=== PATIENT | female | born 1940 | race Caucasian/White ===

== ENCOUNTER 2018-02-11 10:23 | Outpatient (CLI) | payer MEDICARE, OTHER ==
[2018-02-11 11:47] LABS: Hemoglobin 13.8 g/dL (12.0-16.0); Mean Corpuscular Hemoglobin 32.2 pg (27.0-31.0); Mean Corpuscular Volume 97.6 fL (78.0-98.0); Mean Platelet Volume 8.6 fL (7.4-10.4); Platelet Count 232 thou/uL (130-400); RBC Distribution Width 12.8 % (11.5-14.5); Red Blood Cell (RBC) Count 4.28 mill/uL (4.20-5.40); White Blood Cell (WBC) Count 8.8 thou/uL (4.8-10.8)
[2018-02-11 12:08] LABS: Anion Gap 13 mmol/L (10-20); BUN (Urea Nitrogen) 24 mg/dL (9.8-20.1); Calc. Creatinine Clearance 0 mL/min (70-130); Calcium 10.5 mg/dL (7.8-10.44); Carbon Dioxide 29 mmol/L (23-31); Chloride 99 mmol/L (98-107); Estimated GFR-MDRD 39; Glucose 101 mg/dL (83-110); Potassium 3.4 mmol/L (3.5-5.1); Sodium 138 mmol/L (136-145)
== END 2018-02-11 10:24 | disposition home or self-care (01) ==
LOC: LABBT 10:23
PROVIDERS: ATTEND Neurological Surgery
DX: Z01.818 Encounter for other preprocedural examination (principal); M48.061 Spinal stenosis, lumbar region without neurogenic claudication
CPT/HCPCS: 80048; 85027; 93005; 93010

== ENCOUNTER 2018-02-11 10:30 | Inpatient (IN) | payer MEDICARE, OTHER ==
[2018-02-21] MEDS ORDERED: Sodium Chloride 0.9% 0 ML ONE (06:48)
[2018-02-21] MEDS ORDERED: CEFAZOLIN/Water 2 GM/20 ML SYRINGE ONE (06:58)
[2018-02-21] MEDS ORDERED: Phenylephrine HCL 10 MG/ML VIAL ONE (07:06)
[2018-02-21] MEDS ORDERED: Fentanyl 250 MCG/5 ML VIAL ONE (07:06)
[2018-02-21] MEDS ORDERED: Promethazine HCl 25 MG/ML VIAL ONE (07:07)
[2018-02-21] MEDS ORDERED: Promethazine HCl 25 MG/ML VIAL SLOW IVP PRN (08:48)
[2018-02-21] MEDS ORDERED: Ondansetron HCl/PF 4 MG/2 ML Vial IVP PRN (08:48)
[2018-02-21] MEDS ORDERED: Morphine Sulfate 2 MG/ML SYRINGE SLOW IVP PRN (08:48)
[2018-02-21] MEDS ORDERED: Meperidine HCl/PF 25 MG/ML VIAL SLOW IVP PRN (08:48)
[2018-02-21] MEDS ORDERED: Sodium Chloride 0.9% 10 ML ONE (09:35)
[2018-02-21] MEDS ORDERED: traMADol HCl 50 MG TAB PO PRN ×2 (10:19)
[2018-02-21] MEDS ORDERED: Promethazine HCl 25 MG/ML VIAL IM PRN (10:19)
[2018-02-21] MEDS ORDERED: Milk Of Magnesia 30 ML UDCUP PO PRN (10:19)
[2018-02-21] MEDS ORDERED: HYDROcodone/Acetaminophen 10/325 mg Tablet PO PRN ×2 (10:19)
[2018-02-21] MEDS ORDERED: Mag-Al 1200 mg/1200 mg/30 ML UDCUP PO PRN (10:19)
[2018-02-21] MEDS ORDERED: Promethazine 25 MG TAB PO PRN (10:19)
[2018-02-21] MEDS ORDERED: Promethazine HCl 12.5 MG SUPP PR PRN (10:19)
[2018-02-21] MEDS ORDERED: tiZANidine HCl 4 MG TAB PO PRN (10:19)
[2018-02-21] MEDS ORDERED: Ondansetron HCl/PF 4 MG/2 ML Vial IM PRN (10:21)
[2018-02-21] MEDS ORDERED: Morphine 4 MG/ML VIAL IV PRN (10:21)
--- NOTE | 2018-02-21 10:37 | OP ---
DATE OF PROCEDURE: 02/21/2018 SURGEON: Jose Medellin M.D. WARD MAID: Attila Ruiz PROCEDURES: L4-L5 laminectomy, removal of synovial cyst. PROCEDURE IN DETAIL: The patient was brought to the operating room and intubated. She was rolled in the prone position on gel-filled chest rolls. Incision made exposing L4 and L5 and our level was co nfirmed by x-ray. We performed complete L5 and inferior L4 laminectomies, removed the right-sided sy novial cyst and completely decompressed the neural elements bilaterally. The wound was then extensiv betsy irrigated, immaculate hemostasis was secured. Vancomycin powder was applied and the wound was cl osed in anatomic layers.
[2018-02-21] MEDS: CEFAZOLIN/Water 2 GM/20 ML SYRINGE SLOW IVP SCH ×2 (14:32→21:59)
[2018-02-21] MEDS: Sodium Chloride 0.9% 1,000 ML IV SCH (19:55)
[2018-02-21 19:57] VITALS: BMI 26.5
[2018-02-21] MEDS ORDERED: Fish Oil 1,000 MG CAP PO SCH (21:00)
[2018-02-21] MEDS ORDERED: Potassium Chloride 8 MEQ TAB PO SCH (21:00)
[2018-02-21] MEDS ORDERED: Oxybutynin 5 MG TAB PO SCH (21:00)
[2018-02-21] MEDS: Metoprolol Tartrate 25 MG TAB PO SCH (21:35)
[2018-02-22] MEDS: Sodium Chloride 0.9% 1,000 ML IV SCH (02:57)
[2018-02-22 08:12] VITALS: TEMP 97.9
[2018-02-22] MEDS: Metoprolol Tartrate 25 MG TAB PO SCH (08:27)
[2018-02-22] MEDS ORDERED: HYALURONIC ACID PO SCH (09:00)
[2018-02-22] MEDS ORDERED: Triamterene/Hydrochlorothiazide 37.5 mg/25 mg Tablet PO SCH (09:00)
[2018-02-22] MEDS ORDERED: Calcium Carbonate + Vit D 250 MG TAB PO SCH (09:00)
[2018-02-22] MEDS ORDERED: Amlodipine 5 MG TAB PO SCH (09:00)
[2018-02-22] MEDS ORDERED: Cyanocobalamin (Vitamin B-12) 1,000 MCG TAB PO SCH (09:00)
[2018-02-22 11:33] VITALS: BP 118/60
== END 2018-02-22 13:20 | disposition home or self-care (01) | DRG 520 ==
LOC: SURG A 02-21 05:58 → SURG B 02-21 09:14
PROVIDERS: ADMIT Neurological Surgery; ATTEND Neurological Surgery
PROC: 0SB20ZZ Excision of Lumbar Vertebral Disc, Open Approach (ICD-10-PCS; principal; 2018-02-21)
DX: M71.38 Other bursal cyst, other site (principal); M48.061 Spinal stenosis, lumbar region without neurogenic claudication
CPT/HCPCS: 76001; A4216; G8978-GP-CI; G8979-GP-CI; G8980-GP-CI; J2370; J2550; J3010; J3370; J3490